=== PATIENT | male | born 1965 | race Caucasian/White ===

== ENCOUNTER 2020-08-31 08:35 | Outpatient (REF) | payer BC, SELFPAY ==
[2020-08-31 11:39] LABS: Anion Gap 10 (12-20); Blood Urea Nitrogen 17 mg/dL (9-16); Calcium 9.2 mg/dL (8.4-10.2); Carbon Dioxide 32 mmol/L (22-29); Chloride 101 mmol/L (96-108); Cholesterol 157 mg/dL; Estimated Glomerular Filt Rate > 60; Glucose Fasting 110 mg/dL (60-99); HDL Cholesterol 31 mg/dL; LDL Cholesterol Calculated 100 mg/dl; Potassium 4.2 mmol/l (3.3-5.1); Sodium 139 mmol/L (135-145); Triglycerides 131 mg/dL
== END 2020-08-31 08:36 | disposition home or self-care (01) ==
LOC: HO.HMGCLDS 08:35
PROVIDERS: PCP Internal Medicine; Visit Provider Internal Medicine
DX: J45.909 Unspecified asthma, uncomplicated (principal); E78.9 Disorder of lipoprotein metabolism, unspecified; E13.9 Other specified diabetes mellitus without complications; I10 Essential (primary) hypertension
CPT/HCPCS: 80048; 80061

== ENCOUNTER 2020-11-26 09:04 | Outpatient (REF) | payer BC, SELFPAY | END 2020-11-26 09:05 | disposition home or self-care (01) | LOC: HO.HMGCLDS 09:04 | PROVIDERS: PCP Internal Medicine; Visit Provider Internal Medicine | DX: Z20.822 Contact with and (suspected) exposure to COVID-19 (principal) | CPT/HCPCS: 36415; C9803; U0003; U0005 ==

== ENCOUNTER 2020-12-14 08:33 | Outpatient (REF) | payer BC, SELFPAY ==
[2020-12-14 11:45] LABS: Estimated Average Glucose 134 mg/dL; Hemoglobin A1c % 6.3 %
[2020-12-14 11:50] LABS: Anion Gap 11 (12-20); Blood Urea Nitrogen 19 mg/dL (9-16); Calcium 9.2 mg/dL (8.4-10.2); Carbon Dioxide 30 mmol/L (22-29); Chloride 103 mmol/L (96-108); Cholesterol 139 mg/dL; Estimated Glomerular Filt Rate > 60; Glucose Fasting 117 mg/dL (60-99); HDL Cholesterol 27 mg/dL; LDL Cholesterol Calculated 91 mg/dl; Potassium 4.2 mmol/L (3.3-5.1); Sodium 140 mmol/L (135-145); Triglycerides 105 mg/dL
[2020-12-14 12:00] LABS: Creatinine Urine 269.72 mg/dL
== END 2020-12-14 08:34 | disposition home or self-care (01) ==
LOC: HO.HMGCLDS 08:33
PROVIDERS: Internal Medicine; PCP Internal Medicine; Visit Provider Internal Medicine
DX: L30.9 Dermatitis, unspecified (principal); J45.909 Unspecified asthma, uncomplicated; E78.9 Disorder of lipoprotein metabolism, unspecified; E13.9 Other specified diabetes mellitus without complications; I10 Essential (primary) hypertension
CPT/HCPCS: 36415; 80048; 80061; 82043; 83036

== ENCOUNTER 2021-03-23 11:25 | Outpatient (REF) | payer BC, SELFPAY ==
[2021-03-23 14:24] LABS: Estimated Average Glucose 134 mg/dL; Hemoglobin A1c % 6.3 %
[2021-03-23 15:15] LABS: Alanine Aminotransferase 27 U/L (0-40); Albumin Level 4.4 g/dL (3.5-5.0); Alkaline Phosphatase 65 U/L (39-117); Anion Gap 12 (12-20); Aspartate Amino Transferase 27 U/L (5-37); Bilirubin Total 0.9 mg/dL (0.0-1.0); Blood Urea Nitrogen 18 mg/dL (9-16); Calcium 10.2 mg/dL (8.4-10.2); Carbon Dioxide 32 mmol/L (22-29); Chloride 104 mmol/L (96-108); Estimated Glomerular Filt Rate 58; Glucose Random 103 mg/dL (60-115); Sodium 144 mmol/L (135-145); Total Protein 6.8 g/dL (6.5-8.0)
== END 2021-03-23 11:26 | disposition home or self-care (01) ==
LOC: HO.HMGCLDS 11:25
PROVIDERS: PCP Internal Medicine; Visit Provider Internal Medicine
DX: E78.9 Disorder of lipoprotein metabolism, unspecified (principal); E13.9 Other specified diabetes mellitus without complications; I10 Essential (primary) hypertension
CPT/HCPCS: 36415; 80053; 83036

== ENCOUNTER 2022-02-25 09:11 | Outpatient (REF) | payer BC, SELFPAY ==
[2022-02-25 11:10] LABS: MANUAL DIFF FLAG NO
[2022-02-25 11:14] LABS: Basophils Absolute Auto 0.1 X10*3/uL (0.0-0.2); Eosinophils Absolute Auto 0.2 X10*3/uL (0.0-0.4); Hematocrit 47.5 % (42.0-52.0); Hemoglobin 16.1 g/dl (14.0-18.0); Imm Gran Abs Auto 0.02 X10*3/uL (0.00-0.03); Imm Gran Pct Auto 0.4 % (0.0-0.4); Lymphocytes Absolute Auto 1.7 X10*3/uL (1.2-4.9); Lymphocytes Percent Auto 35.7 % (20-40); Mean Corpuscular HGB Conc 33.9 g/dl (31.0-36.0); Mean Corpuscular Hemoglobin 28.5 pg (27.0-33.0); Mean Corpuscular Volume 84.1 fL (80.0-98.0); Mean Platelet Volume 10.7 fL (9.4-12.4); Monocytes Absolute Auto 0.3 X10*3/uL (0.1-1.2); Monocytes Percent Auto 6.1 % (2-11); Neutrophils Absolute Auto 2.5 x10*3/uL (2.0-8.3); Neutrophils Percent Auto 52.8 % (45-73); Platelet Count 192 X10*3/uL (160-400); Red Blood Count 5.65 X10*6/uL (4.60-5.80); Red Cell Distribution Width 13.2 % (11.0-16.0); White Blood Count 4.8 X10*3/uL (4.8-10.8)
[2022-02-25 11:24] LABS: Estimated Average Glucose 171 mg/dL; Hemoglobin A1c % 7.6 %
[2022-02-25 11:36] LABS: Alanine Aminotransferase 33 U/L (0-40); Albumin Level 4.4 g/dL (3.5-5.0); Alkaline Phosphatase 78 U/L (39-117); Anion Gap 10 (12-20); Aspartate Amino Transferase 27 U/L (5-37); Bilirubin Total 1.2 mg/dL (0.0-1.0); Blood Urea Nitrogen 16 mg/dL (9-16); Calcium 9.7 mg/dL (8.4-10.2); Carbon Dioxide 30 mmol/L (22-29); Chloride 104 mmol/L (96-108); Estimated Glomerular Filt Rate 58; Glucose Random 163 mg/dL (60-115); Potassium 4.3 mmol/L (3.3-5.1); Sodium 140 mmol/L (135-145); Total Protein 6.9 g/dL (6.5-8.0)
[2022-02-25 11:36] LABS: Creatinine Urine 333.03 mg/dL; Microalbum/Creatinine Ratio Ur 6.6 ug/mg cr
[2022-02-26 09:07] LABS: LDL Cholesterol Direct 105 mg/dL (<100)
== END 2022-02-25 09:12 | disposition home or self-care (01) ==
LOC: HO.HMGCLDS 09:11
PROVIDERS: PCP Family Medicine; Visit Provider Internal Medicine
DX: Z00.01 Encounter for general adult medical examination with abnormal findings (principal); E78.9 Disorder of lipoprotein metabolism, unspecified; I10 Essential (primary) hypertension; E13.9 Other specified diabetes mellitus without complications
CPT/HCPCS: 36415; 80053; 82043; 83036; 83721; 85025

== ENCOUNTER 2022-05-02 08:18 | Outpatient (REF) | payer BC, SELFPAY ==
[2022-05-02 11:55] LABS: Prostate Specific Antigen Scr 0.48 ng/mL (<0.05-4.0)
== END 2022-05-02 08:19 | disposition home or self-care (01) ==
LOC: HO.HMGCLDS 08:18
PROVIDERS: PCP Family Medicine; Visit Provider Family Medicine
DX: Z12.5 Encounter for screening for malignant neoplasm of prostate (principal)
CPT/HCPCS: 36415; 84153

== ENCOUNTER → 2022-06-29 13:57 | Outpatient (REF) | payer BC, SELFPAY | LOC: HO.SL 13:57 | PROVIDERS: PCP Family Medicine; Visit Provider Nurse Practitioner Family | DX: G47.33 Obstructive sleep apnea (adult) (pediatric) (principal); R06.83 Snoring | CPT/HCPCS: 95806 ==

== ENCOUNTER → 2022-09-28 09:30 | Outpatient (BNVA) | payer BC, SELFPAY | PROVIDERS: PCP Family Medicine; Visit Provider Nurse Practitioner Family | DX: G47.30 Sleep apnea, unspecified (principal) ==

== ENCOUNTER 2022-12-14 09:29 | Outpatient (REF) | payer BC, SELFPAY ==
[2022-12-14 11:39] LABS: Alanine Aminotransferase 37 U/L (0-40); Albumin Level 4.2 g/dL (3.5-5.0); Alkaline Phosphatase 76 U/L (39-117); Anion Gap 12 (12-20); Aspartate Amino Transferase 25 U/L (5-37); Bilirubin Total 0.8 mg/dL (0.0-1.0); Blood Urea Nitrogen 18 mg/dL (9-16); Calcium 9.3 mg/dL (8.4-10.2); Carbon Dioxide 32 mmol/L (22-29); Chloride 103 mmol/L (96-108); Cholesterol 182 mg/dL; Estimated Glomerular Filt Rate 59; Glucose Fasting 141 mg/dL (60-99); HDL Cholesterol 26 mg/dL; LDL Cholesterol Calculated 107 mg/dl; Potassium 4.1 mmol/L (3.3-5.1); Sodium 143 mmol/L (135-145); Total Protein 6.5 g/dL (6.5-8.0); Triglycerides 246 mg/dL
== END 2022-12-14 09:30 | disposition home or self-care (01) ==
LOC: HO.WFDLDS 09:29
PROVIDERS: Visit Provider Family Medicine
DX: Z00.00 Encounter for general adult medical examination without abnormal findings (principal); E78.9 Disorder of lipoprotein metabolism, unspecified; E13.9 Other specified diabetes mellitus without complications
CPT/HCPCS: 36415; 80053; 80061

== ENCOUNTER → 2023-03-29 09:29 | Outpatient (BNVA) | payer BC, SELFPAY | PROVIDERS: PCP Family Medicine; Visit Provider Nurse Practitioner Family ==

== ENCOUNTER 2023-07-21 08:47 | Outpatient (AMB) | payer BC, SELFPAY ==
--- NOTE | 2023-07-21 08:55 | A.OFFPC_ITS ---
Vital Signs 07/21/23 08:57 Height 5 ft 11 in Weight 232 lb 6 oz BMI 32.4 BP 110/62 Blood Pressure Location Lt brachial Position Sitting Respiration 13 Pulse 72 Pulse Source Pulse Oximeter Temp 98.7 F Temp Source Oral Pulse Oximetry (%) 97 Oxygen Delivery Method Room Air Intake Visit Reasons: f/u hyperlipidemia and diabetes Digital Campaign Manager Required: No Accompanied by: Self / Same As Patient Allergies animal dander [PET DANDER] Allergy (Unknown, Verified 03/29/23 09:38) SOB, WHEEZING Tobacco use date assessed: 12/14/22 Dental Screening Dental Screen Date: 07/21/23 Did you have a dental visit in the last 12 months?: Yes Did you have a dental problem in the last 6 months where you did not have access to dental care?: No Was dental information given to patient?: Patient has dentist HPI f/u hyperlipidemia and diabetes HPI Details 58 y/o male presents to f/u diabetes and hyperlipidemia. A1c today 7.5%, which worsened from 7.2%. He is on glipizide-metformin 2.5-500mg b.i.d. No recent lipid panel to review. Blood pressure today 110/62. He is on lisinopril 40mg, HCTZ 25mg. HPI Comments History of Present Illness Details Documentation assistance for Rodrigo Alberto MD, was provided by Saroj Flores,?Certified Medical Transcriptionist on 07/21/2023 9:28 AM EST. I, Dr. Alberto, have read, observed, and verified documentation.? FORMERLY [facility], [facility]–1983 Medical History Asthma Diabetes 1.5, managed as type 2 Eczema Hypertension, essential Lipid disorder Skin cancer Family History Father Concern about mental disorder without diagnosis Mother HTN (hypertension) Heart disease Social History Housing: Condominium Alcohol intake: never Patient Tobacco Use Status: Former Tobacco user (20 years ) Tobacco use type: Cigarette Years Smoked: 20 years e-Cigarette/Vaping Use: Never Used Second Hand Smoke Exposure: No service: No Current occupational status: employed Current occupational exposures/hazards: No Cognitive needs: No Hearing needs: No Vision needs: No Questionnaire Thrive Questionnaire Date Thrive assessed: 07/21/23 DONG-7 AMB Questionnaire DONG-7 Date DONG - 7 assessed: 07/21/23 Source: Developed by Drs. Mitchell Rea, Lulu Gaytan, Darinel Fulton and colleagues, with an educational cas from [employer]. Review of Systems Const Denies chills, Denies fatigue, Denies fever(s), Denies headache(s) and Denies weakness ENT Denies dizziness and Denies headache(s) Card Denies dyspnea Resp Denies cough, Denies dyspnea, Denies wheezing and Denies other (shortness of breath) Musc Denies numbness and Denies tingling Neuro Denies dizziness, Denies headache(s), Denies numbness, Denies tingling and Denies weakness Psych Denies anxiety and Denies depression Endo Denies fatigue Aller/Immun Denies wheezing Physical exam (Primary Care) Vital Signs: Last Vital Signs Temp 98.7 F 07/21/23 08:57 Pulse 72 07/21/23 08:57 Resp 13 07/21/23 08:57 BP 110/62 07/21/23 08:57 Pulse Ox 97 07/21/23 08:57 Oxygen Delivery Method Room Air 07/21/23 08:57 BMI result Body Mass Index 32.4 Tobacco/Smoking Status: Tobacco use Status Tobacco use date assessed 12/14/22 07/21/23 09:03 Patient Tobacco Use Status Former Tobacco user (20 07/21/23 09:03 years ) Tobacco use type Cigarette 07/21/23 09:03 e-Cigarette/Vaping Use Never Used 07/21/23 09:03 Thrive Assessment: Date of Thrive Assessment Date Thrive assessed 07/21/23 07/21/23 09:03 Const General: well developed; No acute distress Nutritional Appearance: well nourished Orientation/consciousness: patient oriented x3 HENMT Head: Yes normocephalic and Yes atraumatic Eyes General: appearance normal, both eyes and all related structures Pupils: Equal, round and reactive pupils present EOM: EOMs intact bilaterally Resp Effort & Inspection: normal respiratory effort Neuro General: patient oriented x3 and gait normal Cranial nerves: Yes Equal, round and reactive pupils present Psych Affect: normal affect Results AMB Hemoglobin A1c AMB Hemoglobin A1c 7.5 % Last Edit by Maci Ferraro CMA on 07/21/23 09:16 Results Reviewed Results Reviewed: Laboratory Last Values Hgb A1c (Clinic) 7.5 % (4.0-6.0) H 07/21/23 09:12 Assessment and Plan Assessment & Plan (1) Diabetes: Code(s): E11.9 - Type 2 diabetes mellitus without complications Plan: A1c?has?increased?again?despite?increasing?his?combo?medication.??Goal?is?less?t rogel?7.0% Continue?glipizide- metformin?combo?pill?as?prescribed?and?adding?Trulicity?today. (2) Hypertension, essential: Code(s): I10 - Essential (primary) hypertension Plan: Blood?pressure?is?well?controlled.??Goal?is?less?than?140/90 Continue?current?medication?regimen (3) Hyperlipidemia: Code(s): E78.5 - Hyperlipidemia, unspecified Plan: Had?switched?atorvastatin?to?rosuvastatin He?can?get?his?lipids?drawn?any?time?next?week. Orders: Orders Lipid Panel Today Z00.00 - Encounter for general adult medical examination without abnormal findings Comprehensive [place]. Panel Fast Today Z00.00 - Encounter for general adult medical examination without abnormal findings Medications: New dulaglutide (Trulicity) 0.75 mg (0.5 mL) subcut QWEEK 2 mL 3RF 28 days Changed From lisinopril 40 mg PO DAILY 30 tabs 0RF To lisinopril 40 mg PO DAILY 90 tabs 3RF 90 days Coding Level of Care Code Est Pt Level 4 (76611) Diagnoses Diabetes E11.9 Hypertension, essential I10 Hyperlipidemia E78.5
[2023-07-21 08:57] VITALS: BP 110/62; PULSE 72; RESP 13; TEMP 37.1; O2SAT 97; BMI 32.4
== END 2023-07-21 09:46 | disposition home or self-care (01) ==
PROVIDERS: PCP Family Medicine; Visit Provider Family Medicine
DX: E11.9 Type 2 diabetes mellitus without complications (principal); I10 Essential (primary) hypertension; E78.5 Hyperlipidemia, unspecified
CPT/HCPCS: 83036; 99214

== ENCOUNTER 2023-09-02 09:31 | Outpatient (AMB) | payer BC, SELFPAY ==
--- NOTE | 2023-09-02 10:10 | AM.OFFWIN_ITS ---
Intake Vital Signs 09/02/23 10:29 Weight 104.326 kg BP 116/76 Blood Pressure Location Rt brachial Position Sitting Pulse 80 Pulse Source Pulse Oximeter Temp 97.9 F Temp Source Temporal Artery Scan Pulse Oximetry (%) 97 Oxygen Delivery Method Room Air Intake Visit Reasons: EP cough/mucous/headache [phone] Intake Note: Patient here for constant cough, runny nose, coughing so much that his sides hurt and head. 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 Patient Tobacco Use Status: Former Tobacco user (20 years ) Allergies animal dander [PET DANDER] Allergy (Unknown, Verified 09/02/23 10:11) SOB, WHEEZING Do you need a note to return to daycare/school/sports/work: Yes HPI HPI Comments History of Present Illness Details 58-year-old male presents with cough, wh eeze, and overall feeling of unwellness over the past 2 days. He does report having a prior COVID infection approximately 3 weeks ago while he was in [place]. Does report that he recovered from those symptoms, but over the past 2 days, he has had cough, wheezing, subjective fevers and chills. He does not report any chest pain or pressure, palpitations, nausea, vomiting, abdominal pain, abdominal distention, or edema. [facility] Medical History Asthma Diabetes 1.5, managed as type 2 Eczema Hypertension, essential Lipid disorder Skin cancer Family History Father Concern about mental disorder without diagnosis Mother HTN (hypertension) Heart disease Housing: Condominium Alcohol intake: never Patient Tobacco Use Status: Former Tobacco user (20 years ) Tobacco use type: Cigarette Years Smoked: 20 years e-Cigarette/Vaping Use: Never Used Second Hand Smoke Exposure: No service: No Current occupational status: employed Current occupational exposures/hazards: No Cognitive needs: No Hearing needs: No Vision needs: No Review of Systems Const Details: Constitutional: No Fever, positive Chills, positive fatigue ENT/Mouth: No Ear Pain, No Hoarseness, No sore throat Eyes: No Eye Pain, No Swelling, No Redness, No Foreign Body Cardiovascular: No Chest Pain, No SOB Respiratory: Positive Cough, No Dyspnea Gastrointestinal: No Nausea, No Vomiting, No Diarrhea, No abdominal Pain Genitourinary: No Dysuria, No Hematuria Musculoskeletal: No joint pain, No Myalgias, No Joint Swelling Skin: No Skin lacerations, No rash Neuro: No Weakness, No Numbness, No Paresthesias, No Dizziness, No Headache All systems reviewed & are unremarkable except as noted in HPI and below Physical Exam Appearance: Alert. Oriented X3. No acute distress. Eyes: Pupils equal, round and reactive to light. ENT: Pharynx normal. Neck: Normal inspection. Neck supple. CVS: Normal heart rate and rhythm. Pulses normal. Respiratory: No respiratory distress. Expiratory wheezing to left lower lobe. Skin: Skin warm and dry. Normal skin color. Normal skin turgor. Extremities: No lower extremity edema. Neuro: No motor deficit. No sensory deficit. Results Reviewed Results Reviewed: XR CHEST CLINICAL INFORMATION: Cough. COMPARISON: None available. TECHNIQUE: 2 views of the chest were obtained. FINDINGS: No significant abnormality is noted involving the heart, lungs, mediastinum, bony thorax or soft tissues. XR/XR chest 2V IMPRESSION: Unremarkable chest examination. Assessment & Plan Assessment & Plan (1) Cough: Code(s): R05.9 - Cough, unspecified Plan: 58-year-old male presents with cough, fatigue, congestion, and expiratory wheezing. Patient states that his listen to his lung sounds and feels that he could possibly have pneumonia, his is a physical therapist. Patient also reports that he was COVID positive approximately 3 weeks ago while he was in [place], his symptoms from that COVID infection have resolved however over the past 2 days had some shortness of breath with his coughing, wheezing, and overall feeling of unwellness. His physical exam indicates left lower lobe expiratory wheezing, he is coughing intermittently, speaking with clear voice in complete sentences. No respiratory distress. This patient does have diabetes and asthma, will order a chest x-ray. Chest x-ray is negative. Considering this patient's comorbidities, will treat with azithromycin if patient worsens in the next 3 days understands that he should start this medication. I did explain to him that his chest x-ray was negative at this time, I did give this patient an incentive spirometer, which he demonstrated proper utilization of the device. I did order Coricidin high blood pressure chest congestion and cough medication, as well as the pack. Patient verbalized understanding of discharge instructions. Verbalized understandings of signs and symptoms indicating need for emergent intervention. Orders: Orders SARS-CoV2/FLU/RSV Today R09.89 - Other specified symptoms and signs involving the circulatory and respiratory systems XR chest 2V Today R05.9 - Cough, unspecified Medications: New dextromethorphan-guaifenesin 10-200 mg (Coricidin HBP Chest Congestion-Cough) 1 tab-cap PO Q8H PRN 30 caps 0RF cough azithromycin (Zithromax Z-Ramón) For 250 mg dose pack: take 500 mg today (day 1), then 250 mg for 4 days (days 2-5) PO 6 tabs 0RF Patient Instructions: You were evaluated for cough and wheezing. Your chest x-ray is negative for pneumonia. We are treating you with azithromycin for bronchitis. Please take azithromycin 500 mg today, and 250 mg daily for the next 4 days. Take Coricidin cough every 8 hours as needed for coughing. Alternate Tylenol 650 mg every 6 hours and Motrin 600 mg every 6 hours as needed for pain and fever management. Consider taking these medications 3 hours apart so you have pain and fever management every 3 hours. Write down what time you take these medications to prevent accidental overdose. Motrin is the same medication as Advil and ibuprofen. Tylenol is the same medication as acetaminophen. Use your incentive spirometer at least 10 times per hour while awake. This device will help improve lung function. Drink plenty of fluids. Thank you for choosing this urgent care for evaluation. Please follow-up with primary care physician as needed. Return to the emergency department for any new, concerning, or worsening symptoms. Coding Level of Care Code Est Pt Level 3 (10970) Diagnoses Cough R05.9
[2023-09-02 10:29] VITALS: BP 116/76; PULSE 80; TEMP 36.6; O2SAT 97
== END 2023-09-02 11:18 | disposition home or self-care (01) ==
PROVIDERS: PCP Family Medicine; Visit Provider Nurse Practitioner Family
DX: R05.9 Cough, unspecified (principal)
CPT/HCPCS: 99213

== ENCOUNTER 2023-09-02 10:35 | Outpatient (REF) | payer BC, SELFPAY ==
--- NOTE | ~2023-09-02 | XR_ITS ---
EXAMINATION: XR CHEST CLINICAL INFORMATION: Cough. COMPARISON: None available. TECHNIQUE: 2 views of the chest were obtained. FINDINGS: No significant abnormality is noted involving the heart, lungs, mediastinum, bony thorax or soft tissues. XR/XR chest 2V IMPRESSION: Unremarkable chest examination.
== END 2023-09-02 10:36 | disposition home or self-care (01) ==
LOC: HO.HMGCX 10:35
PROVIDERS: Visit Provider Nurse Practitioner Family
DX: R05.9 Cough, unspecified (principal)
CPT/HCPCS: 71046

== ENCOUNTER 2023-09-02 11:10 | Outpatient (REF) | payer BC, SELFPAY ==
[2023-09-02 12:00] LABS: Influenza A PCR NEGATIVE (Negative); Influenza B PCR NEGATIVE (Negative); Resp Syncy Virus RNA Qual PCR NEGATIVE (Negative); SARS COV2 PCR INHOUSE NEGATIVE (Negative)
== END 2023-09-02 11:11 | disposition home or self-care (01) ==
LOC: HO.LNP 11:10
PROVIDERS: Visit Provider Nurse Practitioner Family
DX: Z11.52 Encounter for screening for COVID-19 (principal); R09.89 Other specified symptoms and signs involving the circulatory and respiratory systems; Z20.822 Contact with and (suspected) exposure to COVID-19
CPT/HCPCS: 0241U

== ENCOUNTER 2023-10-25 09:22 | Outpatient (AMB) | payer BC, SELFPAY ==
[2023-10-25 09:27] VITALS: BP 118/78; PULSE 80; O2SAT 96; BMI 31.1
--- NOTE | 2023-10-25 09:27 | MHC.PC.OV ---
Vital Signs 10/25/23 09:27 Height 5 ft 11 in Weight 223 lb BMI 31.1 BP 118/78 Blood Pressure Location Lt brachial Position Sitting Pulse 80 Pulse Source Pulse Oximeter Pulse Oximetry (%) 96 Oxygen Delivery Method Room Air Intake Visit Reasons: f/u?hypertension,?diabetes?and?hyperlipidemia Intake Note: Patient is here to follow up on hypertension, diabetes, and hyperlipidemia. Allergies animal dander [PET DANDER] Allergy (Unknown, Verified 10/25/23 09:29) SOB, WHEEZING Tobacco use date assessed: 10/25/23 HPI f/u?hypertension,?diabetes?and?hyperlipidemia HPI Details 58 y/o male presents to f/u diabetes, hypertension and hyperlipidemia. Blood pressure today 118/78. He is on lisinopril 40mg and HCTZ 25mg A1c today 10/25/23 is 7.0%. He is on Trulicity 0.75mg, glipizide-metformin 2.5-500 mg b.i.d. Pt reports a strong odor to his urine. Pt notes he has been exercising 3-4x a week. He reports he has not been using his Trulicity. [facility] Medical History Skin cancer Eczema Asthma Lipid disorder Diabetes 1.5, managed as type 2 Hypertension, essential Family History Father Concern about mental disorder without diagnosis Mother HTN (hypertension) Heart disease Social History Housing: Condominium Alcohol intake: never Patient Tobacco Use Status: Former Tobacco user (20 years ) Tobacco use type: Cigarette Years Smoked: 20 years e-Cigarette/Vaping Use: Never Used Second Hand Smoke Exposure: No service: No Current occupational status: employed Current occupational exposures/hazards: No Cognitive needs: No Hearing needs: No Vision needs: No Questionnaire PHQ-9 Over the last 2 weeks, how often have you been bothered by any of the following problems? 1. Little interest or pleasure in doing things: not at all 2. Feeling down, depressed, or hopeless: not at all 3. Trouble falling or staying asleep, or sleeping too much: not at all 4. Feeling tired or having little energy: not at all 5. Poor appetite or overeating: not at all 6. Feeling bad about yourself - or that you are a failure or have let yourself or your family down: not at all 7. Trouble concentrating on things, such as reading the newspaper or watching television: not at all 8. Moving or speaking so slowly that other people could have noticed. Or the opposite - being so fidgety or restless that you have been moving around a lot more than usual: not at all 9. Thoughts that you would be better off or of hurting yourself in some way: not at all Total score: 0 Source: Developed by Drs. Mitchell Rea, Lulu Gaytan, Darinel Fulton and colleagues, with an educational cas from [employer]. Thrive Questionnaire Date Thrive assessed: 07/21/23 I am a: Patient What is your living situation today?: I have a steady place to live Within the past 12 months, did the food you bought not last and you didn't have the money to get more?: Never true Within the past 12 months, did you worry whether your food would run out before you got money to buy more?: Never true Do you have trouble paying for medicines?: No Do you have trouble getting transportation to medical appointments?: No Do you have trouble paying your heating and electricity bill?: No Do you have trouble taking care of your child, family member or friend?: No Do you have trouble with day-to-day activities such as bathing, preparing meals, shopping, managing finances, etc.?: No Are you currently unemployed and looking for a job?: No Are you interested in more education?: No AUDIT C Alcohol Use Questionnaire (AUDIT-C) 1. How often do you have a drink containing alcohol?: Monthly or less 2. How many drinks containing alcohol do you have on a typical day when you are drinking?: 1 or 2 3. How often do you have six or more drinks on one occasion?: Never Total Score: 1 DONG-7 AMB Questionnaire DONG-7 Date DONG - 7 assessed: 10/25/23 Feeling nervous, anxious, or on edge: 0 = Not at all Not being able to stop or control worryin = Not at all Worrying too much about different things: 0 = Not at all Trouble relaxin = Not at all Being so restless that it is hard to sit still: 0 = Not at all Becoming easily annoyed or irritable: 0 = Not at all Feeling afraid as if something awful might happen: 0 = Not at all Total DONG-7 score (0-4 normal; 5-9 mild; 10-14 moderate; 15-21 severe): 0 Source: Developed by Drs. Mitchell Rea, Lulu Gaytan, Darinel Fulton and colleagues, with an educational cas from [employer]. Review of Systems Const Denies chills, Denies fatigue, Denies fever(s), Denies headache(s) and Denies weakness ENT Denies dizziness and Denies headache(s) Card Denies chest pain, Denies lightheadedness, Denies dyspnea and Denies other (Palpitations) Resp Denies cough, Denies dyspnea, Denies wheezing and Denies other ( shortness of breath) Musc Denies numbness and Denies tingling Neuro Denies dizziness, Denies headache(s), Denies numbness, Denies tingling, Denies paresthesias and Denies weakness Psych Denies anxiety and Denies depression Endo Denies fatigue Aller/Immun Denies wheezing Physical exam (Primary Care) Vital Signs: Last Vital Signs Pulse 80 10/25/23 09:27 BP 118/78 10/25/23 09:27 Pulse Ox 96 10/25/23 09:27 Oxygen Delivery Method Room Air 10/25/23 09:27 BMI result Body Mass Index 31.1 Tobacco/Smoking Status: Tobacco use Status Tobacco use date assessed 10/25/23 10/25/23 09:31 Patient Tobacco Use Status Former Tobacco user (20 10/25/23 09:31 years ) Tobacco use type Cigarette 10/25/23 09:31 e-Cigarette/Vaping Use Never Used 10/25/23 09:31 PHQ-9: PHQ-9 Score PHQ-9: Total score 0 10/25/23 09:59 Thrive Assessment: Date of Thrive Assessment Date Thrive assessed 07/21/23 10/25/23 09:31 Const General: no acute distress and well developed Nutritional Appearance: well nourished Orientation/consciousness: patient oriented x3 HENMT Head: Yes normocephalic and Yes atraumatic Eyes General: appearance normal, both eyes and all related structures Pupils: Equal, round and reactive pupils present EOM: EOMs intact bilaterally Resp Effort & Inspection: normal respiratory effort Auscultation: clear to auscultation bilaterally Cardio Rate: regular rate Rhythm: regular rhythm Heart sounds: S1 normal heart sound present, S2 normal heart sound present, no gallops, no murmurs and no rubs Neuro General: patient oriented x3 and gait normal Cranial nerves: Yes Equal, round and reactive pupils present Psych Affect: normal affect Results AMB Hemoglobin A1c AMB Hemoglobin A1c 7.0 % Last Edit by Enid Colindres CMA on 10/25/23 09:48 Results Reviewed Results Reviewed: Laboratory Last Values Hgb A1c (Clinic) 7.0 % (4.0-6.0) H 10/25/23 09:44 Assessment and Plan Assessment & Plan (1) Hypertension, essential: Code(s): I10 - Essential (primary) hypertension Plan: Blood?pressure?is?well?controlled.??Goal?is?less?than?140/90 Continue?current?medication (2) Diabetes 1.5, managed as type 2: Code(s): E13.9 - Other specified diabetes mellitus without complications Plan: A1c?significantly?improved?from?7.5%?down?to?7.0%. Nearly?at?goal?of?less?than?7% Continue?current?medication?regimen; patient?had?not?started?Trulicity?so?I?have?discontinued?this. Continue?diabetic?diet?and?exercise?and?weight?loss. (3) Hyperlipidemia: Code(s): E78.5 - Hyperlipidemia, unspecified Plan: Patient?has?not?gotten?his?lipids?drawn?yet?but?will?do?so?today. Had?changed?atorvastatin?to?rosuvastatin (4) Malodorous urine: Code(s): R82.90 - Unspecified abnormal findings in urine Plan: Check?urinalysis?and?culture Orders: Orders UA and rflx microscopic Today R82.90 - Unspecified abnormal findings in urine, Z00.00 - Encounter for general adult medical examination without abnormal findings AMB Hemoglobin A1c Today Z13.9 - Encounter for screening, unspecified Urine Culture Today R82.90 - Unspecified abnormal findings in urine Medications: Discontinued dulaglutide (Trulicity) Discontinued Reason: Doctor's Order 0.75 mg (0.5 mL) subcut QWEEK 2 mL 3RF 28 days Coding Level of Care Code Est Pt Level 4 (30779) Diagnoses Hypertension, essential I10 Diabetes 1.5, managed as type 2 E13.9 Hyperlipidemia E78.5 Malodorous urine R82.90
== END 2023-10-25 10:10 | disposition home or self-care (01) ==
PROVIDERS: PCP Family Medicine; Visit Provider Family Medicine
DX: I10 Essential (primary) hypertension (principal); E13.9 Other specified diabetes mellitus without complications; E78.5 Hyperlipidemia, unspecified; R82.90 Unspecified abnormal findings in urine
CPT/HCPCS: 83036; 99214

== ENCOUNTER 2023-10-25 10:13 | Outpatient (REF) | payer BC, SELFPAY ==
[2023-10-25 11:33] LABS: Appearance Urine Clear; Color Urine Yellow; Glucose Urine UA Negative (Negative); Leukocyte Esterase Urine Trace (Negative); Nitrite Urine Negative (Negative); PH 6.5 (5.0-9.0); Specific Gravity - Urine 1.025 (1.005-1.025); UMIC TRIGGER UA YES; Urine Blood Negative (Negative); Urine Ketones Trace mg/dL (Negative); Urine Protein 30 (1+) mg/dL (Neg-Trace)
[2023-10-25 11:39] LABS: Bacteria Urine None Seen (None Seen); Hyaline Casts Urine 0-2 /LPF (0-2); RBC Urine 0-2 /HPF (0-2); Squamous Epithelial Cell Urine 0-2 /HPF (0-2); WBC Urine 0-5 /HPF (0-5)
[2023-10-25 11:55] LABS: Alanine Aminotransferase 29 U/L (0-40); Albumin Level 4.4 g/dL (3.5-5.0); Alkaline Phosphatase 57 U/L (39-117); Anion Gap 12 (12-20); Aspartate Amino Transferase 25 U/L (5-37); Bilirubin Total 0.9 mg/dL (0.0-1.0); Blood Urea Nitrogen 20 mg/dL (9-16); Calcium 9.4 mg/dL (8.4-10.2); Carbon Dioxide 30 mmol/L (22-29); Chloride 101 mmol/L (96-108); Cholesterol 132 mg/dL (<200); Estimated Glomerular Filt Rate 51; Glucose Fasting 155 mg/dL (60-99); HDL Cholesterol 26 mg/dL (>40); LDL Cholesterol Calculated 66 mg/dL (<100); Potassium 3.5 mmol/L (3.3-5.1); Sodium 139 mmol/L (135-145); Total Protein 7.2 g/dL (6.5-8.0); Triglycerides 201 mg/dL (<150)
== END 2023-10-25 10:14 | disposition home or self-care (01) ==
LOC: HO.WFDLDS 10:13
PROVIDERS: Visit Provider Family Medicine
DX: Z00.00 Encounter for general adult medical examination without abnormal findings (principal); R82.90 Unspecified abnormal findings in urine
CPT/HCPCS: 36415; 80053; 80061; 81001; 87086

== ENCOUNTER 2024-02-26 13:49 | Outpatient (AMB) | payer BC, SELFPAY ==
[2024-02-26 13:57] VITALS: BP 120/66; PULSE 79; O2SAT 97; BMI 31.4
--- NOTE | 2024-02-26 13:57 | A.OFFPC_ITS ---
Vital Signs 02/26/24 13:57 Height 5 ft 11 in Weight 225 lb 4 oz BMI 31.4 BP 120/66 Blood Pressure Location Lt brachial Position Sitting Pulse 79 Pulse Source Pulse Oximeter Pulse Oximetry (%) 97 Oxygen Delivery Method Room Air Intake Visit Reasons: 2 mos DM Intake Note: Patient is here to follow up on his diabetes. Patient also complains of pains in his neck. Allergies animal dander [PET DANDER] Allergy (Unknown, Verified 02/26/24 13:59) SOB, WHEEZING Medication List - Last Reconciled 02/26/24 by Rodrigo Alberto MD albuterol sulfate 90 mcg/actuation 2 puffs inhalation Q6H PRN 30 days azithromycin (Zithromax Z-Ramón) For 250 mg dose pack: take 500 mg today (day 1), then 250 mg for 4 days (days 2-5) PO blood sugar diagnostic Q.d. p.r.n. blood sugar diagnostic ([employer] Ultra Test strips) patient to check blood sugar once daily blood-glucose meter As directed clobetasol 0.05% 1 appl topical DAILY 30 days COVID-19 antigen test ([employer] COVID-19 Ag Card Home Test kit) As directed dextromethorphan-guaifenesin 10-200 mg (Coricidin HBP Chest Congestion-Cough) 1 tab-cap PO Q8H PRN fluocinolone acetonide oil 0.01% 5 drps otic (ears) BID 14 days glipizide-metformin 2.5-500 mg 2 tabs PO BID 90 days hydrochlorothiazide 25 mg PO QAM 90 days lancets ([employer] Lancets) patient to check blood sugar once daily lisinopril 40 mg PO DAILY 90 days omega [id number]-hmn-[id number]-fish oil 1,000 mg (120 mg-180 mg) (Fish Oil) 1 cap PO DAILY omeprazole 40 mg PO DAILY 90 days rosuvastatin 40 mg PO DAILY 90 days Tobacco use date assessed: 02/26/24 Dental Screening Dental Screen Date: 02/26/24 Did you have a dental visit in the last 12 months?: Yes Did you have a dental problem in the last 6 months where you did not have access to dental care?: No Was dental information given to patient?: Patient has dentist HPI 2 mos DM HPI Details 58 y/o male presents to f/u diabetes. A1c today 5/20/24 6.9%. He is on Trulicity, glipizide-metformin 2.5-500mg. Blood pressure today 120/66. He is on lisinopril 40mg, HCTZ 25mg. Pt notes he has been walking for exercise. Labs were drawn 10/25/23. Reviewed labs with pt. Elevated creatinine level of 1.43. Triglycerides 201. TC 132. LDL 66. HDL low at 26. [facility], [facility] Medical History Skin cancer Eczema Asthma Lipid disorder Diabetes 1.5, managed as type 2 Hypertension, essential Family History Father Concern about mental disorder without diagnosis Mother HTN (hypertension) Heart disease Social History Housing: Condominium Alcohol intake: never Patient Tobacco Use Status: Former Tobacco user (20 years ) Tobacco use type: Cigarette Years Smoked: 20 years e-Cigarette/Vaping Use: Never Used Second Hand Smoke Exposure: No service: No Current occupational status: employed Current occupational exposures/hazards: No Cognitive needs: No Hearing needs: No Vision needs: No Questionnaire Thrive Questionnaire Date Thrive assessed: 07/21/23 DONG-7 AMB Questionnaire DONG-7 Date DONG - 7 assessed: 10/25/23 Source: Developed by Drs. Mitchell Rea, Lulu Gaytan, Darinel Fulton and colleagues, with an educational cas from [employer]. Review of Systems Const Denies chills, Denies fatigue, Denies fever(s), Denies headache(s) and Denies weakness ENT Denies dizziness, Denies headache(s) and Reports neck pain Card Denies dyspnea Resp Denies cough, Denies dyspnea, Denies wheezing and Denies other (shortness of breath) Musc Details: R trapezius/neck pain Reports back pain, Reports neck pain, Denies numbness and Denies tingling Neuro Denies dizziness, Denies headache(s), Denies numbness, Denies tingling and Denies weakness Psych Denies anxiety and Denies depression Endo Denies fatigue Aller/Immun Denies wheezing Physical exam (Primary Care) Vital Signs: Last Vital Signs Pulse 79 02/26/24 13:57 BP 120/66 02/26/24 13:57 Pulse Ox 97 02/26/24 13:57 Oxygen Delivery Method Room Air 02/26/24 13:57 BMI result Body Mass Index 31.4 Tobacco/Smoking Status: Tobacco use Status Tobacco use date assessed 02/26/24 02/26/24 14:02 Patient Tobacco Use Status Former Tobacco user (02/26/24 13:58 years ) Tobacco use type Cigarette 02/26/24 13:58 e-Cigarette/Vaping Use Never Used 02/26/24 13:58 Thrive Assessment: Date of Thrive Assessment Date Thrive assessed 07/21/23 02/26/24 13:58 Const General: well developed; No acute distress Nutritional Appearance: well nourished Orientation/consciousness: patient oriented x3 HENMT Head: Yes normocephalic and Yes atraumatic Eyes General: appearance normal, both eyes and all related structures Pupils: Equal, round and reactive pupils present EOM: EOMs intact bilaterally Resp Effort & Inspection: normal respiratory effort Neuro General: patient oriented x3 and gait normal Cranial nerves: Yes Equal, round and reactive pupils present Psych Affect: normal affect Results AMB Hemoglobin A1c AMB Hemoglobin A1c 6.9 % Last Edit by Enid Colindres CMA on 02/26/24 14:13 Results Reviewed Results Reviewed: Laboratory Last Values Hgb A1c (Clinic) 6.9 % (4.0-6.0) H 02/26/24 14:13 Assessment and Plan Assessment & Plan (1) Diabetes 1.5, managed as type 2: Code(s): E13.9 - Other specified diabetes mellitus without complications Plan: A1c?now?6.9%.??He?is?at?goal?of?less?than?7.0% Continue?current?medication?regimen Continue?exercise?and?weight?loss (2) Hypertension, essential: Code(s): I10 - Essential (primary) hypertension Plan: Blood?pressure?is?controlled.??Goal?is?less?than?140/90 Continue?current?medications (3) Low HDL (under 40): Code(s): E78.6 - Lipoprotein deficiency Plan: Encouraged?exercise Will?continue?to?follow?this (4) Back pain: Code(s): M54.9 - Dorsalgia, unspecified Plan: Right?trapezius?and?posterior?neck?pain?and?stiffness He?can?use?diclofenac?gel?and?ice/heat Also?gentle?stretching?after?a?2day period?of?relative?rest. Will?give?him?a?muscle?relaxer He?would?like?a?referral?to?a?chiropractor-made?referral (5) Elevated serum creatinine: Code(s): R79.89 - Other specified abnormal findings of blood chemistry Plan: Mildly?elevated?serum?creatinine?level. He?is?on?a?few?medications?which?can?elevate?creatinine?such?as?metformin,?lisin opril?and?hydrochlorothiazide. He?notes?that?he?does?not?drink?much?water?and?I?encouraged?him?to?increase?hy dration.??If?he?is?not?able?to?bring?his?creatinine?level?down?with?hydration,?w e?will?discuss?decreasing?hydrochlorothiazide Orders: Orders AMB Hemoglobin A1c Today Z13.9 - Encounter for screening, unspecified Referrals Chiropractic Referral M54.9 - Dorsalgia, unspecified Medications: New cyclobenzaprine 10 mg PO BID 10 days PRN 20 tabs 0RF muscle spasm diclofenac sodium 1% Apply to affected area 3 times a day 2 grams topical TID 30 days 100 grams 3RF Coding Level of Care Code Est Pt Level 4 (69271) Diagnoses Diabetes 1.5, managed as type 2 E13.9 Hypertension, essential I10 Low HDL (under 40) E78.6 Back pain M54.9 Elevated serum creatinine R79.89
== END 2024-02-26 14:30 | disposition home or self-care (01) ==
PROVIDERS: PCP Family Medicine; Visit Provider Family Medicine
DX: E13.9 Other specified diabetes mellitus without complications (principal); I10 Essential (primary) hypertension; E78.6 Lipoprotein deficiency; M54.9 Dorsalgia, unspecified; R79.89 Other specified abnormal findings of blood chemistry
CPT/HCPCS: 83036; 99214

== ENCOUNTER 2024-04-22 08:40 | Outpatient (REF) | payer BC, SELFPAY ==
[2024-04-22 10:38] LABS: Alanine Aminotransferase 26 U/L (0-40); Albumin Level 4.4 g/dL (3.5-5.0); Alkaline Phosphatase 57 U/L (39-117); Anion Gap 14 (12-20); Aspartate Amino Transferase 30 U/L (5-37); Blood Urea Nitrogen 24 mg/dL (9-16); Calcium 9.6 mg/dL (8.4-10.2); Carbon Dioxide 30 mmol/L (22-29); Chloride 102 mmol/L (96-108); Cholesterol 138 mg/dL (<200); Estimated Glomerular Filt Rate 51; Glucose Fasting 132 mg/dL (60-99); HDL Cholesterol 25 mg/dL (>40); LDL Cholesterol Calculated 69 mg/dL (<100); Potassium 3.5 mmol/L (3.3-5.1); Sodium 142 mmol/L (135-145); Total Protein 7.2 g/dL (6.5-8.0); Triglycerides 222 mg/dL (<150)
== END 2024-04-22 08:41 | disposition home or self-care (01) ==
LOC: HO.HMGCLDS 08:40
PROVIDERS: PCP Family Medicine; Visit Provider Family Medicine
DX: Z00.00 Encounter for general adult medical examination without abnormal findings (principal); R79.89 Other specified abnormal findings of blood chemistry; E78.6 Lipoprotein deficiency
CPT/HCPCS: 36415; 80053; 80061

== ENCOUNTER 2024-08-08 15:28 | Outpatient (AMB) | payer BC, SELFPAY ==
[2024-08-08 15:29] VITALS: BP 134/86; BMI 31.7
--- NOTE | 2024-08-08 15:29 | MHC.OFFVIS ---
Vital Signs 08/08/24 15:29 Height 5 ft 11 in Weight 227 lb BMI 31.7 BP 134/86 Blood Pressure Location Rt brachial Position Sitting Intake Visit Reasons: 1yr follow up Sleep Apnea Intake Note: patient presents for follow up sleep apnea Allergies animal dander [PET DANDER] Allergy (Unknown, Verified 08/08/24 15:33) SOB, WHEEZING HPI Comments Details: 59-yr-old male presents for follow-up visit of sleep apnea. Pt denies any significant interval medical history changes. Pt reports he uses his CPAP nightly. Recently, noticed that his sleep scores were significantly lower than normal- 30% rather than usual 90% x's 2 nights. He brought the machine to [facility], and the machine was found to be defective, and his machine was replaced. The new machine is working much better. He feels he sleeps better now. He does tend to move in his sleep. Denies leg cramps. [facility] Medical History Skin cancer Eczema Asthma Lipid disorder Diabetes 1.5, managed as type 2 Hypertension, essential Family History Father Concern about mental disorder without diagnosis Mother HTN (hypertension) Heart disease Social History Housing: Condominium Alcohol intake: never Patient Tobacco Use Status: Former Tobacco user (20 years ) Tobacco use type: Cigarette Years Smoked: 20 years e-Cigarette/Vaping Use: Never Used Second Hand Smoke Exposure: No service: No Current occupational status: employed Current occupational exposures/hazards: No Cognitive needs: No Hearing needs: No Vision needs: No Physical Exam Vital Signs: Last Vital Signs BP 134/86 08/08/24 15:29 BMI result Body Mass Index 31.7 Const General: no acute distress Orientation/consciousness: patient oriented x3 Resp Effort & Inspection: normal respiratory effort and able to speak in complete sentences Neuro General: patient oriented x3 Psych Mental Status: mental status grossly normal Speech and movement: Clear speech present Attitude: cooperative Assessment & Plan Assessment & Plan (1) Sleep apnea: Comment: Mild degree of sleep apnea with increased severity in supine sleep. The AHI was 14/hr, supine AHI was 27/hr. Oxygen betty was 86%. Code(s): G47.30 - Sleep apnea, unspecified Category: Medical Plan Continue APAP [id number] nightly > 4 hours, as pt continues to have good clinical effect from use. Will request updated compliance report from new machine. Clean CPAP machine and supplies routinely. Change CPAP supplies routinely. Pt to contact us or respiratory company with any questions or concerns. Pt to follow-up in 12 months or sooner prn. Coding Level of Care Code Est Pt Level 3 (03311) Diagnoses Sleep apnea G47.30
== END 2024-08-08 16:11 | disposition home or self-care (01) ==
LOC: HO.HSMS 15:29
PROVIDERS: Absent Provider Nurse Practitioner Family; PCP Family Medicine; Visit Provider Nurse Practitioner Family
DX: G47.30 Sleep apnea, unspecified (principal)
CPT/HCPCS: 99213

== ENCOUNTER → 2024-08-08 15:28 | Outpatient (BNVA) | payer BC, SELFPAY | PROVIDERS: Absent Provider Nurse Practitioner Family; PCP Family Medicine; Visit Provider Nurse Practitioner Family ==

== ENCOUNTER 2025-08-04 14:30 | Outpatient (AMB) | payer BC, SELFPAY ==
[2025-08-04 14:37] VITALS: BP 100/60; PULSE 96; O2SAT 96; BMI 29.7
--- NOTE | 2025-08-04 14:37 | A.OFFVIS_ITS ---
Vital Signs 08/04/25 14:37 Height 5 ft 11 in Weight 213 lb BMI 29.7 BP 100/60 Blood Pressure Location Lt brachial Position Sitting Pulse 96 Pulse Source Pulse Oximeter Pulse Oximetry (%) 96 Oxygen Delivery Method Room Air Intake Visit Reasons: 1 yr follow up Intake Note: patient presents for follow up sleep apnea Director Cardiac Required: No Accompanied by: Self / Same As Patient Allergies animal dander (PET DANDER) Allergy (Unknown, Verified 08/04/25 14:41) SOB, WHEEZING HPI Comments Details: 59-yr-old male presents for follow-up visit of sleep apnea. The patient denies any significant interval medical history changes. He reports reports he uses his CPAP nightly. He sleeps well with his CPAP. He reports he uses distilled water in his CPAP water reservoir, cleans his CPAP supplies regularly, and has sufficient supplies. However, he was concerned that he has been receiving feels for his CPAP supplies were as in the past he had not. On review, it seems like patient now has a deductible plan he has to meet before his CPAP supplies will be fully covered. Compliance Report Respiratory company: [facility] 90-day Compliance report 05/06/2025 - 08/03/2025 Overall PAP usage: 90/90 days (100%) PAP usage >= 4 hours: 90 days (100%) Average usage on days used: 7 hours 52 minutes Device: Laura G3 Auto-CPAP [id number] Mode: Auto-CPAP 5-20 cm H2O with Reslex (EPR) 3 Reslex * Avg Pressure (cmH2O) 6.2 * Avg P95 (cmH2O) 8 Leak (L/min): * Median leak 1 L/min * Average high leaks 0 L/min Residual events per hour: * AHI 0.7 per hour [facility] Medical History Skin cancer Eczema Asthma Lipid disorder Diabetes 1.5, managed as type 2 Hypertension, essential Family History Father Concern about mental disorder without diagnosis Mother HTN (hypertension) Heart disease Social History Housing: Condominium Alcohol intake: never Patient Tobacco Use Status: Former Tobacco user (20 years ) Tobacco use type: Cigarette Years Smoked: 20 years e-Cigarette/Vaping Use: Never Used Second Hand Smoke Exposure: No service: No Current occupational status: employed Current occupational exposures/hazards: No Cognitive needs: No Hearing needs: No Vision needs: No Physical Exam Vital Signs: Last Vital Signs Pulse 96 08/04/25 14:37 BP 100/60 08/04/25 14:37 Pulse Ox 96 08/04/25 14:37 Oxygen Delivery Method Room Air 08/04/25 14:37 BMI result Body Mass Index 29.7 Const General: no acute distress Orientation/consciousness: patient oriented x3 Resp Effort & Inspection: normal respiratory effort and able to speak in complete sentences Neuro General: patient oriented x3 Psych Mental Status: mental status grossly normal Speech and movement: Clear speech present Attitude: cooperative Assessment & Plan Assessment & Plan (1) Sleep apnea: Comment: Mild degree of sleep apnea with increased severity in supine sleep. The AHI was 14/hr, supine AHI was 27/hr. Oxygen betty was 86%. Code(s): G47.30 - Sleep apnea, unspecified Category: Medical Plan Continue APAP [id number] nightly > 4 hours, as pt continues to have good clinical effect from use. Clean CPAP machine and supplies routinely. Change CPAP supplies routinely. Continuing to use distilled water in CPAP water reservoir Pt to contact us or respiratory company with any questions or concerns. Pt to follow-up in 12 months or sooner prn. Coding Level of Care Code Est Pt Level 3 (52582) Diagnoses Sleep apnea G47.30
--- OUTSIDE RECORDS SUMMARY | 2025-08-04 18:06 | XMS_ITS | Data Portability ---
Author Organization [place] - [facility], Allergy Address [address] [address] Care Team Providers Care Day Care Teacher Name Role Phone VÍCTOR KIMBLE Primary Care Provider Assessment Encounter Date Assessment Date Assessment LastModified by Organization Details LastModified Time 04/10/2024 04/10/2024 59-year-old male presents for an ear cleaning. Cerumen impaction removed bilaterally. Bilateral tympanic membranes are intact with aerated middle ear spaces. No evidence of infection. Follow-up in 3 months for routine debridement, or sooner with concerns. [email or web address] Not available 04/10/2024 10:19:27 07/17/2024 07/17/2024 59-year-old male presents for an ear cleaning. Cerumen impaction removed bilaterally. Bilateral tympanic membranes are intact with aerated middle ear spaces. Follow-up in 3 months for routine debridement, or sooner with concerns. [email or web address] Not available 07/17/2024 10:45:05 10/23/2024 10/23/2024 59-year-old male presents for an ear cleaning. Cerumen impaction removed bilaterally. Bilateral tympanic membranes are intact with aerated middle ear spaces. Follow-up in 3 months for routine debridement, or sooner with concerns. [email or web address] Not available 10/23/2024 10:12:16 01/29/2025 01/29/2025 59-year-old male presents for an ear cleaning. Cerumen impaction removed bilaterally. Bilateral tympanic membranes are intact with aerated middle ear spaces. Follow-up in 3 months for routine debridement, or sooner with concerns. [email or web address] Not available 01/29/2025 10:18:36 Plan of Treatment Reminders Order Date Submit Date Provider Last Modified By Organization Details Last Modified Time Details Appointments Establish ed 15 2024 01:15P M LINA PARIKH PA-C Not available Not available Not available Lab None recorded. Referral None recorded. Procedures None recorded. Surgeries None recorded. Imaging None recorded. Medication Orders None recorded. Patient TargetsNo targets recorded. Patient InstructionsNo instructions recorded. Reason for Referral None Reported. Results Created Date Observation Date Name Description Value Unit Range Abnormal Flag Note LastModifiedBy Organization Detail LastModifiedTime 05/29/20 24 12/20/2023 imagi ng/di agnos tic resul t No observ ation record ed. [email or web address] Not Available 23:29:20 05/29/20 24 12/28/2022 imagi ng/di agnos tic resul t No observ ation record ed. [email or web address] Not Available 23:29:22 05/29/20 24 12/28/2022 audio gram No observ ation record ed. [email or web address] Not Available 23:30:40 Result Notes None recorded. Problems Name Problem SNOMED Code Status Onset Date Resolution Date Notes Provider Name and Address Organization Details Recorded Time Bilatera l diffuse otitis externa 58062346386 48392 Completed 201905/10/2024 Diffuse otitis externa, bilatera l; Note: Date Diagnose d: 02/14/2020 2:53 PM (H60.313 ) Not Available [facility] 4 02:32:51 Impacted cerumen of bilatera l ears 47378959017 80491 Active 2019 Impacted cerumen, bilatera l; Note: Date Diagnose d: 07/27/20 20 2:04 PM (H61.23) Not Available [facility] 4 02:32:48 Itching of skin 797472230 Active 2020 Pruritus , unspecif ied; Note: Date Diagnose d: 04/08/2021 3:39 PM (L29.9) Not Available [facility] 4 02:32:40 Gastroes ophageal reflux disease without esophagi tis 910972967 Active 2020 Esophage al reflux NOS; Note: Date Diagnose d: 08/30/20 4:48 PM (K21.9) Not Available [facility] 4 02:32:57 Dysphagi a 42024710 Active 2020 Dysphagi a, unspecif ied; Note: Date Diagnose d: 08/30/20 4:48 PM (R13.10) Not Available [facility] 4 02:32:52 Sensorin eural hearing loss of bilatera l ears 420539603 Active 2022 Sensorin eural hearing loss, bilatera l; Note: Date Diagnose d: 3 9:17 AM (H90.3) Not Available [facility] 4 02:32:41 Diffuse otitis externa 02811339 Completed 202205/10/2024 Diffuse otitis externa, left ear; Note: Date Diagnose d: 08/28/20 4:18 PM (H60.312 ) Not Available [facility] 4 02:32:50 Impacted cerumen in right ear 93703622182 51264 Active 2022 Impacted cerumen, right ear; Note: Date Diagnose d: 08/28/20 4:18 PM (H61.21) Not Available [facility] 4 02:32:44 Notes:Encounter for issue of repeat prescription Note: Date Diagnosed: 09/01/2023 5:17 AM (Z76.0) Note: Date Diagnosed: 09/01/2023 5:17 AM (Z76.0) Problem Notes None recorded. Procedures Surgical History Date Name Laterality Status Provider Name and Address Organization Details Recorded Time 5 Cerumen removal without microscope bilat completed LINA PARIKH PA-C [address] [place] [address], [address], [place] - [facility] 01/29/2025 10:18:32 5 Cerumen removal without microscope bilat completed LINA PARIKH PA-C [address] [place] [address], [address], [facility] - [facility] [place] 10/23/2024 10:11:57 4 Cerumen removal without microscope bilat completed LINA PARIKH PA-C [address] [facility], [place], [address], [facility] - [facility] 07/17/2024 10:44:47 4 Cerumen removal without microscope bilat completed LINA PARIKH PA-C [address] [facility] [address], [place], [address], [facility] - [facility] [place] 04/10/2024 10:18:02 Imaging Results None recorded. Procedure Notes None recorded. Medical Equipment None Reported. Allergies No known drug allergies Medications Name Sig Start Date Stop Date Status Note LastModified by Organization Details LastModified Time cyclobenz aprine 10 mg tablet TAKE 1 TABLET BY MOUTH TWICE A DAY NEEDED FOR MUSCLE SPASMS FOR 10 DAYS active Not Available Not Available No t Available atorvasta tin 80 mg tablet 04/05 completed Medicati on ID: [id number] D uration Value: 90 Brand Name: atorvast atin Sen d Method: E-Prescr ibed Sub s Allowed: subs OK Speci al Instruct ion: TAKE 1 TABLET BY MOUTH EVERY DAY Medi cationGe nericNam e: atorvast atin Not Available Not Available Not Available azithromy mirna 250 mg tablet TAKE 2 TABLETS BY MOUTH TODAY, THEN TAKE 1 TABLET DAILY FOR 4 DAYS DIRECTED active Not Available Not Available No t Available fluocinon jeremías 0.05 % topical ointment APPLY TO AFFECTED AREA ON LEGS TWICE A DAY NEEDED FOR PRURITIS , DECREASE USE SYMPTOMS IMPROVE active Not Available Not Available No t Available omeprazol e 40 mg capsule,d elayed release TAKE 1 CAPSULE BY MOUTH EVERY DAY FOR 90 DAYS active Not Available Not Available No t Available oseltamiv ir 75 mg capsule TAKE 1 CAPSULE BY MOUTH TWICE A DAY FOR 5 DAYS active Not Available Not Available No t Available clotrimaz ole 1 % topical solution Apply 2022 active Medicati on ID: [id number] D uration Value: 14 Brand Name: clotrima zole Sen d Method: E-Prescr ibed Sub s Allowed: subs OK Speci al Instruct ion: 4 drops into both ears BID x 2 weeks Me dication GenericN fredy: clotrima zole Not Available Not Available Not Available omeprazol e 20 mg capsule,d elayed release Take 1 capsule by mouth every morning one hour before meals 2020 active Medicati on ID: [id number] D uration Value: 30 Prescri bed By Name: Dada Barber nd Name: omeprazo le Send Method: E-Prescr ibed Sub s Allowed: subs OK [facility] omeprazo le Not Available Not Available Not Available hydrochlo rothiazid e 25 mg tablet TAKE 1 TABLET BY MOUTH EVERY MORNING FOR 90 DAYS active Not Available Not Available No t Available albuterol sulfate HFA 90 mcg/actua tion aerosol inhaler 2 PUFF INHALED EVERY 6 HOURS NEEDED FOR SHORTNES S OF BREATH OR WHEEZING FOR 30 DAYS active Not Available Not Available No t Available lisinopri l 40 mg tablet TAKE 1 TABLET BY MOUTH DAILY FOR 90 DAYS active Not Available Not Available No t Available glipizide 2.5 mg-metfor min 500 mg tablet TAKE 2 TABS ORALLY 2 TIMES A DAY FOR 90 DAYS active Not Available Not Available No t Available ciproflox acin 0.3 %-dexamet hasone 0.1 % ear drops,blayne pension Apply 4 drop into left ear twice a day 2023 active Medicati on ID: [id number] D uration Value: 14 Brand Name: ciproflo xacin-de xamethas one Send Method: E-Prescr ibed Sub s Allowed: subs OK [facility] : ciproflo xacin-de xamethas one Not Available Not Available Not Available rosuvasta tin 40 mg tablet TAKE 1 TABLET BY MOUTH EVERY DAY FOR 90 DAYS active Not Available Not Available No t Available fluocinol one acetonide oil 0.01 % ear drops INSTILL 2 DROP INTO AFFECTED EAR TWICE A WEEK NEEDED active Not Available Not Available No t Available ProAir HFA 04/05 completed Medicati on ID: [id number] D uration Value: 25 Brand Name: ProAir HFA Send Method: E-Prescr ibed Sub s Allowed: subs OK Speci al Instruct ion: INHALE 2 PUFFS BY MOUTH EVERY 6 HOURS NEEDED M edicatio nGeneric Name: ProAir HFA Not Available Not Available Not Available Jardiance 10 mg tablet TAKE 1 TABLET BY MOUTH EVERY DAY IN THE MORNING active Not Available Not Available No t Available Chest Congestio n-Cough HBP 10 mg-200 mg capsule TAKE 1 CAPSULE BY MOUTH EVERY 8 HOURS NEEDED FOR COUGH active Not Available Not Available No t Available Vitals Date Recorded Body height Body mass index (BMI) Body weight Provider Name and Address Organization Details Last Updated DateTime 10/23/2024 177.8 cm 30.6 kg/m2 79801.17 g Peng Vincent [place] - [facility] 10/23/2024 10:22:14 Date Recorded Body height Body mass index (BMI) Body weight Provider Name and Address Organization Details Last Updated DateTime 01/29/2025 177.8 cm 30.6 kg/m2 15175.17 g Noemi Velásquez [facility] 01/29/2025 10:26:52 Date Recorded Body height Body mass index (BMI) Body weight Provider Name and Address Organization Details Last Updated DateTime 04/10/2024 177.8 cm 30.6 kg/m2 52726.17 g Noemi Velásquez [facility] 04/10/2024 09:58:42 Date Recorded Body height Body mass index (BMI) Body weight Provider Name and Address Organization Details Last Updated DateTime 07/17/2024 177.8 cm 30.6 kg/m2 57097.17 g Noemi Velásquez [facility] 07/17/2024 09:35:41 Social History None recorded. Functional Status None recorded. Mental Status None recorded. Family History Nothing Reported. Medical History No medical history recorded. Past Encounters Encounter ID Performer Location Encounter Start Date Encounter Closed Date Diagnosis/Indication Diagnosis SNOMED-CT Code Diagnosis ICD10 Code Diagnosis IMO Codes Diagnosis Note [id number] LINA PARIKH PA-C [facility] [address] [address] 04/10/2024 09:37:04 04/10/2024 10:14:23 Impacted cerumen of bilateral ears 6945724368 739646 H61. LINA PARIKH PA-C [facility] [place] [address] [facility] [place] [address] 07/17/2024 09:16:18 07/17/2024 10:06:58 Impacted cerumen of bilateral ears 3392847164 886649 H61.23 [id number] LINA PARIKH PA-C [facility] [place] [facility] [address] [facility] [place] [address] 10/23/2024 10:10:40 10/23/2024 12:06:36 Impacted cerumen of bilateral ears 4471965381 347101 H61.23 [id number] LINA PARIKH PA-C [facility] [address] [facility] [place] [address] 01/29/2025 10:16:53 01/29/2025 10:39:21 Impacted cerumen of bilateral ears 3059751131 752416 H61.23 Health Concerns Section Related Observation LastModified by Organization Detai ls LastModified Time None Recorded Concern Status LastModified by Organization Details LastModified Time None Recorded Advance Directives Directive None Recorded Payers Insurance Date Sequence Insurance Name Policy Number Policy [place] Covered Member ID Palacios Member ID Guarantor Name 07/17/2024 1 [place] Aubrey Lemon [id number] Aubrey Lemon 07/17/2024 1 [place]PPO[place] Aubrey Lemon [id number] Aubrey Lemon 01/22/2025 1 [place] [id number] Aubrey Lemon [id number] AB Aubrey Lemon 01/29/2025 1 [place] [id number] Aubrey Lemon [id number] AB Aubrey Lemon 01/29/2025 1 [place] [id number] Aubrey Lemon [id number] AB Aubrey Lemon 07/17/2024 1 [place] [id number] Aubrey Lemon [id number] AB Aubrey Lemon Notes Date Note Type Note Provider Name and Address Organization Details Recorded Time 04/10/2024 text/html ROS as noted in the HPI 59-year-old male presents for routine ear cleaning. Notes mild itching of the ears, but denies otagia, otorrhea, or changes in his hearing. History of chronic OE. History of asymmetric hearing loss that is being observed. Patient is diabetic and reports glucose is well controlled. FRANCHESKA SINGLETARY MD [address] [facility],[address], [address], [facility] 04/10/2024 12:42:58 07/17/2024 text/html ROS as noted in the [facility] 59-year-old male presents for routine ear cleaning. Notes mild itching of the ears, but denies otagia, otorrhea, or changes in his hearing. Uses Dermotic as needed for itching. History of chronic OE. History of asymmetric hearing loss that is being observed. Patient is diabetic and reports glucose is well controlled. MONIE BOO MD [address] [place] [address],[address], [address], [facility] 07/17/2024 16:33:43 10/23/2024 text/html ROS as noted in the [facility] 59-year-old male presents for routine ear cleaning. Notes mild itching of the ears, but denies otalgia, otorrhea, or changes in his hearing. Uses Dermotic as needed for itching. History of chronic OE. History of asymmetric hearing loss that is being observed. Patient is diabetic and reports glucose is well controlled. FRANCHESKA SINGLETARY MD [address] [facility],[address], [address], [facility] 10/23/2024 17:08:36 01/29/2025 text/html ROS as noted in the [facility] 59-year-old male presents for routine ear cleaning. Notes mild itching of the ears, but denies otalgia, otorrhea, or changes in his hearing. Uses Dermotic as needed for itching. History of chronic OE. History of asymmetric hearing loss that is being observed. Patient is diabetic and reports glucose is well controlled. CHRISTA RIVAS MD [address] [facility],[address], [address], [facility] 01/29/2025 12:24:29
--- OUTSIDE RECORDS SUMMARY | 2025-08-04 18:06 | XMS_ITS | Data Portability ---
Author Organization TRACY Husam Nuñez [facility], [facility] Address [address] [place] [address] Assessment Encounter Date Assessment Date Assessment LastModified by Organization Details LastModified Time 06/16/2025 06/16/2025 Assessment: Righ t elbow lateral epicondylitis, initial diagnosis Plan: Pathophysiology of this problem has been reviewed with the patient. Treatment options have been reviewed. He declines a cortisone injection today which he understands would only provide pain relief and risk some integrity to the tendon tissue. He is provided with a forearm strap and a PT prescription for a one-time visit for home exercise program. [email or web address] Not available 06/16/2025 10:44:37 Plan of Treatment Reminders Order Date Submit Date Provider Last Modified By Organization Details Last Modified Time Details Appointments None recorded. Lab None recorded. Referral physical therapist referral - Diagnosis : Right Lateral epicondyl itis Treatment : Eccentric strengthe deborah exercises of wrist extensors and developme nt of home exercise program. 1 time visit 2024 025 nuvia Not available 5 08:55:30 Procedures None recorded. Surgeries None recorded. Imaging XR, elbow, 3 or more view - room 2- 3V R elbow 2024 025 nuvia [facility], [address], [facility] [address], [place], [address], 5 08:55:30 Medication Orders None recorded. Patient TargetsNo targets recorded. Patient InstructionsNo instructions recorded. Reason for Referral Physical Therapist Referral for Right lateral elbow tendinopathy Diagnosis: Right Lateral epicondylitisTreatment: Eccentric strengthening exercises of wrist extensors and development of home exercise program. 1 time visit Referring Physician: Flavia Ramey, Orthopedic Surgery, Encounter Date: 06/16/2025 Results Created Date Observation Date Name Description Value Unit Range Abnormal Flag Note LastModifiedBy Organization Detail LastModifiedTime 06/16/2006/16/2025 XR, elbow , 3 or more view http:/ [email or web address] ?Encry pted=s hAaTro YD8dLq bEUv6g %2BXZw aYqtaq 0bqfl% 2Fg9IQ a4ajBk vP9nXo QUaueC m3YtLR FvZlgJ JJ8mAn HZtai3 3t0743 AC0Klb H2CV6K kKiQtr MwF INTERFACE [facility] [address] [facility] [address], [place], [address], 06/16/2025 10:03:35 06/16/20 25 06/16/2025 XR, elbow , 3 or more view http:/ [email or web address] ?Encry pted=s hAaTro YD8dLq bEUv6g %2BXZw aYqtaq 0bqfl% 2Fg9IQ a4ajBk vP9nXo QUaueC m3YtLR FvZlgJ JJ8mAn HZtai3 1r6532 AC0Klb H2CV6K kKiQtr MwF INTERFACE [facility] Office [address] [facility] [address], [place], [address], 06/16/2025 10:03:36 Result Notes Documentation Provider Name and Address Organization Details Recorded Time Xr, Elbow, 3 Or More View : [email or web address]? Encrypted=ayOnXizNE4uBoqY Uv6g%8OWMxuLlkle4xnfg%2Fg 4QQz9pfCwfO8ePtRJymwPk4Pn GVYjNkoACU2zJiETytt89i675 1JQ6AtzC4UK7KwJrPjxRhV Not Available [facility] 06/16/2025 10:03: 35 Xr, Elbow, 3 Or More View : [email or web address]? Encrypted=yjUlTyfYC6tJvgM Uv6g%7PHYzqFcdcy5amtd%2Fg 1DYh5dzZhyV6aXfICgdeDa2Uo HXXmNuzHTO2bCkOZzst46p685 2AL3ZabN9KP8FkHvMseXfT Not Available [facility] 06/16/2025 10:03: 36 Medical Equipment None Reported. Allergies No known drug allergies Medications Name Sig Start Date Stop Date Status Note LastModified by Organization Details LastModified Time azithromycin 250 mg tablet TAKE 2 TABLETS BY MOUTH TODAY, THEN TAKE 1 TABLET DAILY FOR 4 DAYS DIRECTED active Not Available Not Available No t Available omeprazole 40 mg capsule,delay ed release TAKE 1 CAPSULE BY MOUTH EVERY DAY active Not Available Not Available No t Available triamcinolone acetonide 0.1 % topical cream APPLY TOPICALLY TWICE DAILY TO RASH ON LEFT LEG AND THEN WASH HANDS. active Not Available Not Available No t Available hydrochloroth iazide 25 mg tablet TAKE 1 TABLET BY MOUTH EVERY MORNING FOR 90 DAYS active Not Available Not Available No t Available lisinopril 40 mg tablet TAKE 1 TABLET BY MOUTH DAILY FOR 90 DAYS active Not Available Not Available No t Available glipizide 2.5 mg-metformin 500 mg tablet TAKE 2 TABS ORALLY 2 TIMES A DAY FOR 90 DAYS active Not Available Not Available No t Available rosuvastatin 40 mg tablet TAKE 1 TABLET BY MOUTH EVERY DAY FOR 90 DAYS active Not Available Not Available No t Available Jardiance 10 mg tablet TAKE 1 TABLET BY MOUTH EVERY DAY IN THE MORNING active Not Available Not Available No t Available Vitals Date Recorded Body height Body mass index (BMI) Body weight Provider Name and Address Organization Details Last Updated DateTime 06/16/2025 177.8 cm 30 kg/m2 83292.81 g FRANCISCO MARCOS [place] [facility] 06/16/2025 09:50:35 Social History None recorded. Functional Status None recorded. Mental Status None recorded. Family History Nothing Reported. Medical History No medical history recorded. Past Encounters Encounter ID Performer Location Encounter Start Date Encounter Closed Date Diagnosis/Indication Diagnosis SNOMED-CT Code Diagnosis ICD10 Code Diagnosis IMO Codes Diagnosis Note [id number] MD LAURA [facility] [address] [place] [address] 06/16/2025 09:36:33 06/26/2025 08:55:30 Pain of elbow region 71657506 M25.521 564598 Right late ral elbow tendinopathy 2565807419 22705 M77.11 3497004 Health Concerns Section Related Observation LastModified by Organization Detai ls LastModified Time None Recorded Concern Status LastModified by Organization Details LastModified Time None Recorded Advance Directives Directive None Recorded Payers Insurance Date Sequence Insurance Name Policy Number Policy [place] Covered Member ID Palacios Member ID Guarantor Name 06/26/2025 1 [place] [id number] Aubrey Lemon [id number] AB Aubrey Lemon 06/26/2025 1 [place] [id number] Aubrey Lemon [id number] Aubrey Lemon Notes Date Note Type Note Provider Name and Address Organization Details Recorded Time 06/16/2025 text/html ROS as noted in the HPI 60-year-old LHD male, 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 seen for initial evaluation of right elbow pain, brought on my lifting his 4 yo granddaughter with right arm only. pain started a few months ago.no FA strap, his is a PT, she has done some Ktape for him. No other formal eval/treatment for this problem. Flavia Ramey MD [address] [place] [address] [address], [place], [address], [facility] - [facility] 06/16/2025 10:45:05
--- OUTSIDE RECORDS SUMMARY | 2025-08-04 18:06 | XMS_ITS | Patient Health Record ---
Author Organization [facility] [place] Address [address] [place] [address] Care Team Providers Care Program Specialist Name Role Phone Edmond Zaragoza Primary Care Provider Bev rader Jessica Gayle Unavailable [phone] Allergies No Known Allergies Reason For Referral No Information Medications Medication SIG (Take, Route, Fr equency, Duration) Notes Start Date End Date Status Lisinopril Active glipiZIDE Active Fish Oil Active hydroCHLOROthiazide Active Rosuvastatin Calcium Active Omeprazole Active Immunizations Vaccine Route Administration Date Status Comme nts Influenza Unknown 08/01/2023 Administered Social History Tobacco Use: Social History Observation Description Date Details (start date - stop date) Former Smoker NA - NA Tobacco Use/Smoking Question Answer Notes Are you a: former smoker Additional Findings: Tobacco Non-User Current no n-smoker Alcohol Screen Question Answer Notes Did you have a drink contain ing alcohol in the past year? Yes How often did you have a dri nk containing alcohol in the past year? 2 to 4 times a month (2 points) Points 2 Interpretation Negative Tobacco use other than smoking: Question Answer Notes Are you an other tobacco user? 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 Problem Localized, primary osteoarthritis of the ankle and/or foot (144293315) Arthritis of joint of lesser toe, left (M19.072) Active confirmed Plan Of Treatment No Information Insurance Providers Payer Name Payer Address Payer Phone Subscriber Number Group Number Insured Name Patient Relationship to Insured Coverage Start Date Coverage End Date [facility] [employer] [address] [place] [address] [phone] [id number] B Aubrey Lemon Self - patient is the insured Medical (General) History Medical History History ICD Code asthma Back,Hip,and Knee pain Cancer covid-19 Diabetic Headaches/Migraines High blood pressure Sleep apnea
== END 2025-08-04 15:24 | disposition home or self-care (01) ==
LOC: HO.HSMS 14:31
PROVIDERS: PCP Family Medicine; Visit Provider Nurse Practitioner Family
DX: G47.30 Sleep apnea, unspecified (principal)
CPT/HCPCS: 99213